=== PATIENT | male | born 1980 | race Caucasian/White ===

== ENCOUNTER 2024-12-27 05:58 | Day surgery (SDC) | payer OTHER ==
[~2024-12-27] VITALS: Ht 182.9 cm; Wt 90.9 kg
[~2024-12-27 05:58] MED LIST: AMITRIPTYLINE150 MG PO; COL-RITE250 MG PO; CONSTULOSE10 GM/15 M PO; FLOVENT DISKUS50 MCG INH; GEODON40 MG PO; LACTATED RINGER'S 1,000 ML IV SCH; OMEPRAZOLE20 M1 PO; PAXIL20 MG PO; REMERON15 MG PO; SYNTHROID125 MCG PO; TRAZODONE HCL150 MG PO
[2024-12-27 06:18] VITALS: BP 128/73
[2024-12-27] MEDS ORDERED: PROZAC10 MG PO (06:24)
[2024-12-27] MEDS ORDERED: LIDOCAINE35.44 GM TOP (06:24)
[2024-12-27] MEDS ORDERED: MELATONIN5 M2 PO (06:25)
[2024-12-27] MEDS ORDERED: LOSARTAN POTASS50 MG PO (06:26)
[2024-12-27] MEDS ORDERED: MELOXICAM7.5 MG PO (06:27)
[2024-12-27 06:38] LABS: BASOPHILS 0.9 % (0.2-1.2); BASOPHILS, ABSOLUTE 0.04 K/uL (0.01-0.08); EOSINOPHILS 2.6 % (0.8-7.0); EOSINOPHILS, ABSOLUTE 0.11 K/uL (0.04-0.54); LYMPHOCYTES 38.9 % (21.8-53.1); MCH 30.4 PG (25.7-32.2); MCHC 34.3 g/dL (32.3-36.5); MCV 88.5 fL (79.0-92.2); MONOCYTES 9.6 % (5.3-12.2); MONOCYTES, ABSOLUTE 0.41 K/uL (0.30-0.82); NEUTROPHILS 47.8 % (34.0-67.9); NEUTROPHILS, ABSOLUTE 2.04 K/uL (1.78-5.38); RBC 4.87 M/uL (4.63-6.08)
[2024-12-27 06:54] LABS: ALT (SGPT) 26.0 U/L (14-59); AST (SGOT) 17.0 U/L (15-37); GLOMERULAR FILTRATION RATE,EST 102.0 mL/min (>60); PROTEIN, TOTAL 6.5 g/dL (6.4-8.2); UREA NITROGEN 12.0 mg/dL (7-18)
[2024-12-27] MEDS ORDERED: LIDOCAINE HCL 1% 5 ML SDV INJ ONE (07:00)
[2024-12-27] MEDS ORDERED: HEParin SOD (PORCINE) 5,000 UNIT/ML SDV SUB-Q SCH (07:00)
[2024-12-27] MEDS ORDERED: IBLOOD GLUCOSE TEST STRIP 1 EA TEST VI PRN ×2 (07:00→08:30)
[2024-12-27] MEDS ORDERED: CEFAZOLIN SODIUM 2 GM/20 ML SYR IV SCH (07:00)
[2024-12-27] MEDS ORDERED: LIDOCAINE HCL 2% 5 ML SDV ONE (07:07)
[2024-12-27] MEDS ORDERED: fentaNYL citrate 100 MCG/2 ML VIAL ONE ×2 (07:07→07:38)
[2024-12-27] MEDS ORDERED: DEXAMETHASONE SOD PHOS 4 MG/ML VIAL ONE ×2 (07:07)
[2024-12-27] MEDS ORDERED: MIDAZOLAM HCL 2 MG/2 ML VIAL ONE (07:07)
[2024-12-27] MEDS ORDERED: Ropivacaine HCl 0.5% 30 ML VIAL ONE (07:07)
[2024-12-27] MEDS ORDERED: ROCURONIUM BROMIDE 50 MG/5 ML SYR ONE ×2 (07:38→08:37)
[2024-12-27] MEDS ORDERED: ACETAMINOPHEN 1,000 MG/100 ML VIAL ONE (07:38)
[2024-12-27] MEDS ORDERED: LIDOCAINE HCL 4% 5 ML AMP ONE (07:38)
[2024-12-27] MEDS ORDERED: SEVOFLURANE 250 ML BTL INH ONE (07:58)
[2024-12-27] MEDS ORDERED: fentaNYL citrate 50 MCG/ML SDV IV PRN (08:30)
[2024-12-27] MEDS ORDERED: NALOXONE HCL 0.4 MG SYR IV PRN ×2 (08:30→09:15)
[2024-12-27] MEDS ORDERED: KETOROLAC TROMETHAMINE 30 MG/ML VIAL IV PRN (08:30)
[2024-12-27] MEDS ORDERED: SUGAMMADEX SODIUM 200 MG/2 ML ML ONE (08:37)
--- NOTE | 2024-12-27 09:14 | NUR ---
12/27/24 0914 Sheets,Nargis 0905 PT ARRIVED TO PACU ON RA, PT AWAKE AND HOB INCREASED PER REQUEST. PT DENIES PAIN AND NAUSEA. PT REORIENTED TO PACU. DEEP BREATHING ENCOURAGED. 0914 PT SIPPING WATER.
[2024-12-27] MEDS ORDERED: LACTATED RINGER'S 1,000 ML IV SCH (09:15)
[2024-12-27] MEDS ORDERED: HYDROCODONE/ACETA 5/325 TAB PO PRN (09:15)
[2024-12-27] MEDS ORDERED: ACETAMINOPHEN 500 MG TAB PO PRN (09:15)
[2024-12-27] MEDS ORDERED: IBUPROFEN 600 MG TAB PO PRN (09:15)
[2024-12-27] MEDS ORDERED: IBUPROFEN600 MG PO (09:17)
[2024-12-27] MEDS ORDERED: HYDROCODON-ACE1 EA10 PO (09:17)
[2024-12-27] MEDS ORDERED: ACETAMINOPHEN500 MG PO (09:18)
[2024-12-27 09:33] VITALS: BP 148/77
--- NOTE | 2024-12-27 09:35 | NUR ---
093- PT ARRIVES FROM PACU AWAKE AND TALKING WITH RN. MAGDALENE SERRATO AT BEDSIDE. BEDSIDE REPORT RECEIVED. BED IS LOCKED IN THE LOWEST POSITION, WITH CALL LIGHT IN REACH. LR INFUSING. VITAL SIGNS OBTAINED. SURGICAL SITE SHOWS A SMALL AMOUNT OF RED DRAINAGE. PT REPORTS NO PAIN OR NAUSEA. DISCHARGE CRITERIA DISCUSSED AND PT IS UNDERSTANDING. PT WANTING TO USE THE RESTROOM.
[2024-12-27 10:35] VITALS: BP 139/77
--- NOTE | 2024-12-27 11:06 | NUR ---
0945- PT IS ABLE TO AMBULATE WITH A STEADY AND EVEN GAIT TO THE RESTROOM. PT VOIDS 375 ML OF CLEAR, YELLOW URINE. PT IS ABLE TO SAFELY AMBULATE BACK TO ROOM. PT HAS WATER AND IS SIPPING ON THAT AND EATING SOME PUDDING. 1040- VITAL SIGNS OBTAINED. PT DENIES PAIN AND NAUSEA. IV REMOVED. PT IS ABLE TO GET DRESSED WITH [facility] IN THE ROOM. DISCHARGE PAPERWORK GIVEN TO [employer] GUARDS. PT IS INSTRUCTED ON SHOWERING AND TO WATCH FOR SIGNS AND SYMPTOMS OF INFECTION. PT IS ABLE TO AMBULATE TO WHEELCHAIR. PT DC'S WITH [facility] GUARDS AT THIS TIME WITH NO QUESTIONS OR CONERNS IN HOSPITAL WHEELCHAIR BEING PROPELLED BY GUARD.
--- NOTE | 2024-12-27 11:25 | OR ---
[facility] [address], [place] [address] Signed DATE OF OPERATION: 12/27/2024 SURGEON: Pavel Ruiz MD PREOPERATIVE DIAGNOSIS: Left inguinal hernia. POSTOPERATIVE DIAGNOSIS: Left direct and indirect inguinal hernia. PROCEDURE: Repair of left inguinal hernia including ligation and excision of indirect sac and implantation of Prolene mesh (ProGrip) underlay technique. ANESTHESIA: General endotracheal, Carlos Quiroz, SEAT MAKER and local 10 mL of 0.25% Marcaine with epinephrine. INDICATION: This 44-year-old man is a prisoner at [facility] and originally seen by Pina Armando. I had seen him in quite some time ago for left inguinal hernia, which was reducible. He is now here for repair of the hernia. He has no urinary outlet obstructive symptoms, constipation or chronic cough. He understands the risk of operation of hernia repair including, but not limited to bleeding, infection, chronic pain, recurrent hernia, and other unforeseen complications. Understanding this, he wished to proceed. FINDINGS: A medium size indirect hernia sac was noted, which was without sign of sliding component, which was excised after ligation. The floor itself was markedly attenuated and on that basis, implantation of Prolene mesh in an underlay technique was accomplished as well. DESCRIPTION OF PROCEDURE: The patient was brought to the operating room, given a general endotracheal anesthetic. Preoperative antibiotic Ancef was given. Sequential compression device stockings used and heparin subcutaneously administered. The lower abdomen was clipped and prepared with a chlorhexidine solution and draped sterilely. Cephalad to the pubic tubercle on the left side, an incision was made along the line of skin tension. Dissection carried through the skin with sharp dissection with a 15 blade. Subcutaneous tissue was divided with electrocautery encountering the external oblique. This was incised along its Electronically Signed By: PAVEL RUIZ MD 12/27/24 1125 PATIENT NAME: NAN ARGUELLO OPERATIVE REPORT DATE OF : 78 REPORT #: [id number] PHYSICIAN: PAVEL RUIZ MD PCP: PINA ARMANDO REPORT IS CONFIDENTIAL AND NOT TO BE RELEASED WITHOUT AUTHORIZATION [facility] [address], [place] [address] Signed fibers opened and the ilioinguinal nerve within the cremasteric muscle fibers dissected free and reflected medially around the external oblique, which was then secured with hemostats. The cord was mobilized from the floor in the usual way, encircled with a Sandy drain. Meticulous care was taken to identify within the cremasteric muscle fibers medially and anteriorly an indirect hernia sac, which was freed from the cord with meticulous care and isolated fully from it. The hernia sac was ligated at its base with 2-0 silk suture doubly applied and redundant hernia sac amputated and passed for pathology. The floor of the inguinal canal was quite attenuated. The attenuated fibers of the fascia transversalis were incised with electrocautery and the properitoneal space was bluntly . A segment of Prolene, ProGrip mesh was secured in an underlay technique with interrupted 2-0 Prolene sutures. A defect was cut in the graft to accommodate the cord structures, which were ascertained to be not excessively tight around the cord. No encumbrance of local nerves was done during the course of this securing of the mesh. Irrigation was undertaken and 10 mL of 0.25% Marcaine with epinephrine was injected locally. The ilioinguinal nerve was replaced with the cord and external oblique reapproximated with running 2-0 Vicryl suture. Jenny layer was reapproximated with interrupted 2-0 Vicryl. The skin closed with running subcuticular 3-0 Vicryl. Steri-Strips were applied as was as an Acticoat dressing. The patient tolerated the procedure well, was extubated and transferred to the recovery room in good condition. Blood loss was minimal. MD MARCELL Casper/SAFIAL /[id number] cc: Jenifer Nurse Practitioner [facility] NATALIA Huerta Copies: PINA ARMANDO ~ Electronically Signed By: PAVEL RUIZ MD 12/27/24 1125 PATIENT NAME: NAN ARGUELLO OPERATIVE REPORT DATE OF : 78 REPORT #: [id number] PHYSICIAN: PAVEL RUIZ MD PCP: PINA ARMANDO REPORT IS CONFIDENTIAL AND NOT TO BE RELEASED WITHOUT AUTHORIZATION
--- NOTE | 2024-12-27 13:22 | EKG ---
[facility] [address] [facility] [place], [place] [address] Signed Normal sinus rhythm Early repolarization Normal ECG No previous ECGs available Confirmed by Montana Curry DO ([id number]) on 12/27/2024 1:22:34 PM Electronically Signed By: MONTANA CURRY DO 12/27/24 1322 PATIENT NAME: NAN ARGUELLO Electrocardiogram DATE OF : 78 PHYSICIAN: MONTANA CURRY DO REPORT #: [id number] REPORT IS CONFIDENTIAL AND NOT TO BE RELEASED WITHOUT AUTHORIZATION
--- NOTE | 2024-12-31 13:52 | PATH ---
[facility] [address] [place], [place] [address] Signed SPECIMEN(S): A LEFT INDIRECT HERNIA SAC SPECIMEN SOURCE: A. LEFT INDIRECT HERNIA SAC CLINICAL HISTORY: Left inguinal hernia FINAL PATHOLOGIC DIAGNOSIS: Left indirect hernia sac: - Benign membranous fibroadipose tissue consistent with clinical hernia sac. - Negative for atypical features. JVR:[facility] MICROSCOPIC EXAMINATION: Histologic sections of all submitted blocks are examined by light microscopy. These findings, together with the gross examination, support the pathologic diagnosis. GROSS DESCRIPTION: The specimen, labeled and designated "[place], left indirect hernia sac," is received in formalin and consists of pink-gayle, focally congested fibromembranous tissue fragment that measure 3.5 x 1.1 x 0.2 cm. Sectioning through the specimen is grossly unremarkable. Trench Trimmer Fine sections are submitted in (A1). JS (under the direct supervision of a pathologist) The Gross Description was prepared using a voice recognition system. The report was reviewed for accuracy; however, sound-alike word errors, addition and/or deletions may occur. If there is any question about this report, please contact Client Services. PERFORMING LABORATORY: Technical component was performed by [facility], [address] [place] [id number] (CLIA# [id number]). Professional interpretation was performed by [facility] - [facility], [address] [place] [id number] (CLIA#: [id number]). Diagnostician: William Lao MD Pathologist Electronically Signed 12/31/2024 PATIENT NAME: NAN ARGUELLO PATHOLOGY DATE OF : 78 REPORT #: [id number] PHYSICIAN: HUSAM MORALES PCP: PINA ARMANDO REPORT IS CONFIDENTIAL AND NOT TO BE RELEASED WITHOUT AUTHORIZATION [address] [address] Signed Copies: ~ PATIENT NAME: NAN ARGUELLO PATHOLOGY DATE OF : 78 REPORT #: [id number] PHYSICIAN: HUSAM PATHOLOGY PCP: PINA ARMANDO REPORT IS CONFIDENTIAL AND NOT TO BE RELEASED WITHOUT AUTHORIZATION
== END 2024-12-27 10:42 | disposition home or self-care (01) ==
LOC: DS 05:58
PROVIDERS: ATTEND Surgery
PROC: 0YU60JZ Supplement Left Inguinal Region with Synthetic Substitute, Open Approach (ICD-10-PCS; principal; 2024-12-27 07:30)
DX: K40.90 Unilateral inguinal hernia, without obstruction or gangrene, not specified as recurrent (principal); R59.0 Localized enlarged lymph nodes; I10 Essential (primary) hypertension; E03.9 Hypothyroidism, unspecified; Z79.890 Hormone replacement therapy; Z79.899 Other long term (current) drug therapy; Z88.2 Allergy status to sulfonamides
CPT/HCPCS: 00830; 36415; 64425; 76942; 80053; 85025; 93005; 93010; C1781; J0131; J0690; J1100; J1644; J2003; J2250; J2405; J2704; J2795; J3010; J3490; J7121